=== PATIENT | male | born 1980 | race Caucasian/White ===

== ENCOUNTER 2017-03-03 10:10 | Inpatient (IN) | payer OTHER ==
[2017-03-03 10:51] VITALS: BMI 35.9
--- NOTE | 2017-03-03 13:28 | HP ---
COWS - Scale Resting Pulse: 0= [place] 80 or Below Sweatin= No chills or Flushing Restless Observation: 0= Sits Still Pupil Size: 2= Moderately Dilated Bone or Joint Aches: 4=Acute Joint/Muscle Pain Runny Nose/ Eye Tearin= Runny Nose/Eyes GI Upset > 30mins: 2= Nausea/Diarrhea (NO DIARRHEA) Tremor Observation: 1= Tremor [place], Not Seen Yawning Observation: 1= 1-2x During Session Anxiety or Irritability: 2=Irritable/Anxious Goose Flesh Skin: 0=Smooth Skin COWS Score: 14 Admission ROS S - HPI Chief Complaint: DETOX [place] FOR HEROIN DEPENDENCE Allergies/Adverse Reactions: Allergies Allergy/AdvReac Type Severity Reaction Status Date / Time No Known Allergies Allergy Verified 03/03/17 12:27 History of Present Illness: 36 Y/O MALE WITH A HX OF HEROIN AND COCAINE DEPENDENCE SEEKING DETOX [place] Exam Limitations: No Limitations - Ebola screening Have you traveled outside of the country in the last 21 days: No Have you had contact with anyone from an Ebola affected area: No Have you been sick,other than usual withdrawal symptoms: No - Review of Systems Constitutional: Chills, Night Sweats, Changes in sleep EENT: reports: Tearing, Nose Congestion Cardiac: reports: Lightheadedness GI: reports: Constipated, Diarrhea, Nausea, Poor Fluid Intake, Vomiting : reports: Dysuria (DUE TO OPIATE USE) Musculoskeletal: reports: Back Pain, Joint Pain, Muscle Pain Integumentary: reports: Bruising Neuro: reports: Headache, Unsteady Gait, Dizziness Endocrine: reports: No Symptoms Reported Hematology: reports: No Symptoms Reported Psychiatric: reports: Mood/Affect Appropiate, Orientated x3 Other Systems: Reviewed and Negative Patient History - Patient Medical History Hx Anemia: No Hx Asthma: No Hx Chronic Obstructive Pulmonary Disease (COPD): No Hx Cancer: No Hx Cardiac Disorders: No Hx Congestive Heart Failure: No Hx Hypertension: No Hx Hypercholesterolemia: No Hx Pacemaker: No HX Cerebrovascular Accident: No Hx Seizures: No Hx Diabetes: No Hx Gastrointestinal Disorders: No Hx Liver Disease: No Hx Genitourinary Disorders: No Hx Sexually Transmitted Disorders: No (DENIES) Hx Renal Disease (ESRD): No Hx Thyroid Disease: No Hx Human Immunodeficiency Virus (HIV): No (NEGATIVE HX) Hx Hepatitis C: No Hx Depression: No Hx Suicide Attempt: No (DENIES) Hx Bipolar Disorder: No Hx Schizophrenia: No - Patient Surgical History Past Surgical History: No Hx Neurologic Surgery: No Hx Cataract Extraction: No Hx Cardiac Surgery: No Hx Lung Surgery: No Hx Breast Surgery: No Hx Breast Biopsy: No Hx Abdominal Surgery: No Hx Appendectomy: No Hx Cholecystectomy: No Hx Genitourinary Surgery: No Hx Orthopedic Surgery: No Anesthesia Reaction: No - PPD History Previous Implant?: Yes Documented Results: Negative w/o proof Implanted On Prior [facility] Admission?: Yes Date: 04/21/14 PPD to be Administered?: Yes - Reproductive History Patient is a Female of Child Bearing Age (11 -55 yrs old): No (MALE) Patient : No (N/A) - Smoking Cessation Smoking history: Former smoker Have you smoked in the past 12 months: No If you are a former smoker, when did you quit?: 2014 Hx Chewing Tobacco Use: No Initiated information on smoking cessation: No - Substance & Tx. History Hx Alcohol Use: No Hx Substance Use: Yes (HEROIN) Substance Use Type: Heroin Hx Substance Use Treatment: Yes (LAST TX AT [facility] DETOX) - Substances Abused Heroin Route: Injection Frequency: Daily Amount used: 13 BAGS Age of first use: 14 Date of Last Use: 03/03/17 Cocaine Route: Inhalation Frequency: 1-3 times last 30 days Amount used: 1 GRAM Age of first use: 14 Date of Last Use: 03/01/17 Family Disease History - Family Disease History Family History: Denies Admission Physical Exam BHS - Vital Signs Vital Signs: Vital Signs - 24 hr 03/03/17 10:49 Temperature 97.3 F L Pulse Rate 70 Respiratory 18 Rate Blood Pressure 113/70 - Physical General Appearance: Yes: Moderate Distress, Obese, Irritable, Anxious HEENTM: Yes: Normocephalic, LACHELLE, Pharynx Normal Respiratory: Yes: Chest Non-Tender, Lungs Clear, Normal Breath Sounds, No Respiratory Distress Neck: Yes: No masses,lesions,Nodules, Supple, Trachea in good position Breast: Yes: Breast Exam Deferred Cardiology: Yes: Regular Rhythm, Regular Rate, S1, S2 Abdominal: Yes: Normal Bowel Sounds, Non Tender, Soft Genitourinary: Yes: Other (N/C) Back: Yes: Within Normal Limits Musculoskeletal: Yes: full range of Motion, Gait Steady Extremities: Yes: Normal Range of Motion, Non-Tender Neurological: Yes: stunner II-XII NML intact, Fully Oriented, Alert, Motor Strength 5/5 Integumentary: Yes: Dry, Warm, Track Brand (ON BOTH HANDS-NO REDNESS OR SWELLING ), Other (SMALL BRUISED SKIN AREAS ON LOWER LEGS. NO DRAINAGE.) Lymphatic: Yes: Within Normal Limits - Diagnostic (1) Nicotine dependence Current Visit: Yes Status: Acute Qualifiers: Substance use status: in withdrawal (2) Opioid dependence with withdrawal Current Visit: Yes Status: Acute (3) Cocaine dependence, uncomplicated Current Visit: Yes Status: Acute Cleared for Admission [facility] - Detox or Rehab [facility] Level of Care: Medically Managed Detox Regimen/Protocol: Methadone [facility] Breath Alcohol Content Breath Alcohol Content: 0 Urine Drug Screen - Results Drug Screen Negative: No Urine Drug Screen Results: PURA-Cocaine, OPI-Opiates
[2017-03-03] MEDS ORDERED: LOPERAMIDE HCL 2 MG CAPSULE PO PRN (13:39)
[2017-03-03] MEDS ORDERED: guaiFENesin/D-METHORPHAN HB 10 ML UNIT-DOSE CUPS PO PRN (13:39)
[2017-03-03] MEDS ORDERED: diphenhydrAMINE HCL 50 MG CAPSULE PO PRN (13:39)
[2017-03-03] MEDS ORDERED: hydrOXYzine PAMOATE 50 MG CAPSULE (FP) PO PRN (13:39)
[2017-03-03] MEDS ORDERED: MAGNESIUM CITRATE 300 ML BOTTLE PO PRN (13:39)
[2017-03-03] MEDS ORDERED: MAGNESIUM HYDROX 2400MG/30ML ORAL SUSPENSION 30 ML CUP PO PRN (13:39)
[2017-03-03] MEDS ORDERED: ACETAMINOPHEN 325 MG TABLET (FP) PO PRN (13:39)
[2017-03-03] MEDS ORDERED: MAG HYDROX/AL HYDROX/SIMETH 30 ML UNIT-DOSE CUP PO PRN (13:39)
[2017-03-03] MEDS ORDERED: MENTHOL/PHENOL 1 EACH UD MM PRN (13:39)
[2017-03-03] MEDS ORDERED: P-EPHED 60MG/TRIPROLIDI 2.5MG TABLET PO PRN (13:39)
[2017-03-03] MEDS ORDERED: IBUPROFEN 400 MG TABLET (FP) PO PRN (13:39)
[2017-03-03] MEDS ORDERED: METHADONE HCL 10 MG TABLET (FOR DETOX USE ONLY) PO ONE ×2 (15:44→23:00)
[2017-03-03] MEDS: diazePAM 5 MG TABLET PO PRN ×2 (15:54→22:35)
[2017-03-03] MEDS: BACITRACIN 0.9 GM PACKET TP SCH (16:00)
[2017-03-03 16:11] LABS: MCH 28.6 pg (25.7-33.7); MCHC 33.9 g/dl (32.0-35.9); MEAN CELL VOLUME 84.4 fl (80-96); MEAN PLT VOLUME 8.7 fl (7.5-11.1); PLATELET COUNT 207 K/MM3 (134-434); RDW 13.6 % (11.9-15.9); WHITE BLOOD COUNT 4.8 K/mm3 (4.0-10.0)
[2017-03-03 16:42] LABS: ALBUMIN 3.5 g/dl (3.4-5.0); ANION GAP 11 (8-16); CALCIUM 8.5 mg/dL (8.5-10.1); CO2 25 mmol/L (21-32); CREATININE 0.9 mg/dL (0.7-1.3); GLUCOSE,RANDOM 88 mg/dL (74-106); SGOT/AST 21 U/L (15-37); SGPT/ALT 28 U/L (12-78)
[2017-03-03 16:46] LABS: ALK PHOS 65 U/L (45-117); BILIRUBIN,TOTAL 0.3 mg/dL (0.2-1.0); TOT PROT 7.8 g/dl (6.4-8.2)
[2017-03-03 17:17] LABS: URINE APPEARANCE CLEAR; URINE BILIRUBIN NEGATIVE (NEGATIVE); URINE BLOOD NEGATIVE (NEGATIVE); URINE COLOR YELLOW; URINE GLUCOSE (UA) NEGATIVE (NEGATIVE); URINE KETONE NEGATIVE (NEGATIVE); URINE NITRITE NEGATIVE (NEGATIVE); URINE PROTEIN NEGATIVE (NEGATIVE); URINE UROBILINOGEN NEGATIVE mg/dL (0.2-1.0)
[2017-03-03] MEDS: NICOTINE 21 MG/24 HOURS TOPICAL PATCH TD SCH (17:42)
[2017-03-03] MEDS: NICOTINE POLACRILEX 4 MG GUM BUC PRN (21:16)
[2017-03-03 21:40] LABS: URINE LEUK ESTERASE Negative (NEGATIVE)
[2017-03-03] MEDS ORDERED: THIAMINE HCL 100 MG TABLET (FP) PO SCH (22:00)
[2017-03-04 00:50] LABS: HIV 1 & 2 AB NEGATIVE; HIV 1 AGp24 NEGATIVE
[2017-03-04] MEDS: diazePAM 5 MG TABLET PO PRN ×2 (02:33→07:05)
[2017-03-04] MEDS: NICOTINE POLACRILEX 4 MG GUM BUC PRN ×3 (02:37→10:11)
--- NOTE | 2017-03-04 07:51 | PN ---
S Progress Note Note: withdrawal symptom,will give clonidine 0.1 mg po now then bid,flexeril 10 mgs po tid prn,continue detox regimen
[2017-03-04] MEDS ORDERED: cloNIDine HCL 0.1 MG TABLET PO ONE (08:06)
[2017-03-04 09:29] VITALS: BP 127/90; PULSE 75; TEMP 97.7
--- NOTE | 2017-03-04 09:54 | PN ---
BHS COWS - Scale Resting Pulse: 0= [place] 80 or Below Sweatin= Beads of Sweat on Face Restless Observation: 3= Extraneous Movement Pupil Size: 0= Normal to Room Light Bone or Joint Aches: 4=Acute Joint/Muscle Pain Runny Nose/ Eye Tearin= Nasal Congestion GI Upset > 30mins: 1= Stomach Cramp Tremor Observation of Outstretched Hands: 1= Tremor [place], Not Seen Yawning Observation: 1= 1-2x During Session Anxiety or Irritability: 4=Extreme Anxiety Goose Flesh Skin: 0=Smooth Skin COWS Score: 18 BHS Progress Note (SOAP) Subjective: SEVERE WITHDRAWAL SX-ANXIETY,IRRITABILITY,RESTLESSNESS,MOANING AND SCREAMING FOR METHADONE, THROWING FOOD TRAY ON THE FLOOR AND SWEATS. SECURITY CAME TO THE FLOOR. PT WAS SPOKEN TO BY SUBSTATION OPERATOR HELPER GENERATION TO COOPERATE WITH HIS NURSE FOR HIS MEDICAL CARE. SUGGESTED TO PATIENT FOR AN ALTERNATE CARE SUCH AN MMTP. SPOKE WITH PT' S COUNSELOR, MICHELA. PT UNDERSTANDS HE NEEDS TO EXPRESS IN POSITIVE WAYS HIS WITHDRAWAL SX AND NEEDS. Objective: 03/04/17 10:25 Laboratory Last Values WBC 4.8 K/mm3 (4.0-10.0) 03/03/17 13:35 RBC 4.50 M/mm3 (4.00-5.60) 03/03/17 13:35 Hgb 12.9 GM/dL (11.7-16.9) 03/03/17 13:35 Hct 38.0 % (35.4-49) 03/03/17 13:35 MCV 84.4 fl (80-96) 03/03/17 13:35 MCH 28.6 pg (25.7-33.7) 03/03/17 13:35 MCHC 33.9 g/dl (32.0-35.9) 03/03/17 13:35 RDW 13.6 % (11.9-15.9) 03/03/17 13:35 Plt Count 207 K/MM3 (134-434) 03/03/17 13:35 MPV 8.7 fl (7.5-11.1) D 03/03/17 13:35 Sodium 138 mmol/L (136-145) 03/03/17 13:35 Potassium 4.4 mmol/L (3.5-5.1) 03/03/17 13:35 Chloride 102 mmol/L (98-107) 03/03/17 13:35 Carbon Dioxide 25 mmol/L (21-32) 03/03/17 13:35 Anion Gap 11 (8-16) 03/03/17 13:35 BUN 13 mg/dL (7-18) D 03/03/17 13:35 Creatinine 0.9 mg/dL (0.7-1.3) D 03/03/17 13:35 Creat Clearance w eGFR > 60 (>60) 03/03/17 13:35 Random Glucose 88 mg/dL (74-106) 03/03/17 13:35 Calcium 8.5 mg/dL (8.5-10.1) 03/03/17 13:35 Total Bilirubin 0.3 mg/dL (0.2-1.0) D 03/03/17 13:35 AST 21 U/L (15-37) 03/03/17 13:35 ALT 28 U/L (12-78) 03/03/17 13:35 Alkaline Phosphatase 65 U/L (45-117) 03/03/17 13:35 Total Protein 7.8 g/dl (6.4-8.2) 03/03/17 13:35 Albumin 3.5 g/dl (3.4-5.0) 03/03/17 13:35 Urine Color Yellow 03/03/17 15:30 Urine Appearance Clear 03/03/17 15:30 Urine pH 5.0 (5.0-8.0) 03/03/17 15:30 Ur Specific [place] 1.020 (1.005-1.025) 03/03/17 15:30 Urine Protein Negative (NEGATIVE) 03/03/17 15:30 Urine Glucose (UA) Negative (NEGATIVE) 03/03/17 15:30 Urine Ketones Negative (NEGATIVE) 03/03/17 15:30 Urine Blood Negative (NEGATIVE) 03/03/17 15:30 Urine Nitrite Negative (NEGATIVE) 03/03/17 15:30 Urine Bilirubin Negative (NEGATIVE) 03/03/17 15:30 Urine Urobilinogen Negative mg/dL (0.2-1.0) 03/03/17 15:30 Ur Leukocyte Esterase Negative (NEGATIVE) 10/23/17 15:30 HIV 1&2 Antibody Screen Negative 03/03/17 12:25 HIV P24 Antigen Negative 03/03/17 12:25 Assessment: 03/04/17 10:25 WITHDRAWAL SX Plan: MONITOR PT
[2017-03-04] MEDS ORDERED: cloNIDine HCL 0.1 MG TABLET PO SCH (10:00)
[2017-03-04] MEDS ORDERED: PRENATAL VITAMINS W/ FOLIC ACID TABLET (FP) PO SCH (10:00)
[2017-03-04] MEDS ORDERED: METHADONE HCL 10 MG TABLET (FOR DETOX USE ONLY) PO ONE (10:00)
[2017-03-04] MEDS: NICOTINE 21 MG/24 HOURS TOPICAL PATCH TD SCH (10:11)
[2017-03-04] MEDS: BACITRACIN 0.9 GM PACKET TP SCH (10:11)
--- NOTE | 2017-03-04 12:43 | DS ---
[facility] Detox Discharge Summary Admission Date: 03/03/17 Discharge Date: 03/04/17 - History Present History: Cocaine Dependence, Opioid Dependence Additional Comments: PT SIGNED OUT AMA. Pertinent Past History: DENIES - Physical Exam Results Vital Signs: Vital Signs Temperature 97.7 F 03/04/17 09:29 Pulse Rate 75 03/04/17 09:29 Respiratory Rate 18 03/04/17 09:29 Blood Pressure 127/90 03/04/17 09:29 O2 Sat by Pulse Oximetry (%) Pertinent Admission Physical Exam Findings: Laboratory Last Values WBC 4.8 K/mm3 (4.0-10.0) 03/03/17 13:35 RBC 4.50 M/mm3 (4.00-5.60) 03/03/17 13:35 Hgb 12.9 GM/dL (11.7-16.9) 03/03/17 13:35 Hct 38.0 % (35.4-49) 03/03/17 13:35 MCV 84.4 fl (80-96) 03/03/17 13:35 MCH 28.6 pg (25.7-33.7) 03/03/17 13:35 MCHC 33.9 g/dl (32.0-35.9) 03/03/17 13:35 RDW 13.6 % (11.9-15.9) 03/03/17 13:35 Plt Count 207 K/MM3 (134-434) 03/03/17 13:35 MPV 8.7 fl (7.5-11.1) D 03/03/17 13:35 Sodium 138 mmol/L (136-145) 03/03/17 13:35 Potassium 4.4 mmol/L (3.5-5.1) 03/03/17 13:35 Chloride 102 mmol/L (98-107) 03/03/17 13:35 Carbon Dioxide 25 mmol/L (21-32) 03/03/17 13:35 Anion Gap 11 (8-16) 03/03/17 13:35 BUN 13 mg/dL (7-18) D 03/03/17 13:35 Creatinine 0.9 mg/dL (0.7-1.3) D 03/03/17 13:35 Creat Clearance w eGFR > 60 (>60) 03/03/17 13:35 Random Glucose 88 mg/dL (74-106) 03/03/17 13:35 Calcium 8.5 mg/dL (8.5-10.1) 03/03/17 13:35 Total Bilirubin 0.3 mg/dL (0.2-1.0) D 03/03/17 13:35 AST 21 U/L (15-37) 03/03/17 13:35 ALT 28 U/L (12-78) 03/03/17 13:35 Alkaline Phosphatase 65 U/L (45-117) 03/03/17 13:35 Total Protein 7.8 g/dl (6.4-8.2) 03/03/17 13:35 Albumin 3.5 g/dl (3.4-5.0) 03/03/17 13:35 Urine Color Yellow 03/03/17 15:30 Urine Appearance Clear 03/03/17 15:30 Urine pH 5.0 (5.0-8.0) 03/03/17 15:30 Ur Specific [place] 1.020 (1.005-1.025) 03/03/17 15:30 Urine Protein Negative (NEGATIVE) 03/03/17 15:30 Urine Glucose (UA) Negative (NEGATIVE) 03/03/17 15:30 Urine Ketones Negative (NEGATIVE) 03/03/17 15:30 Urine Blood Negative (NEGATIVE) 03/03/17 15:30 Urine Nitrite Negative (NEGATIVE) 03/03/17 15:30 Urine Bilirubin Negative (NEGATIVE) 03/03/17 15:30 Urine Urobilinogen Negative mg/dL (0.2-1.0) 03/03/17 15:30 Ur Leukocyte Esterase Negative (NEGATIVE) 03/03/17 15:30 HIV 1&2 Antibody Screen Negative 03/03/17 12:25 HIV P24 Antigen Negative 03/03/17 12:25 WITHDRAWAL SX - Treatment Hospital Course: Discharged Condition Good - Medication Discharge Medications: Ambulatory Orders NK [No Known Home Medication] 04/19/14 - Diagnosis (1) Nicotine dependence Status: Acute Qualifiers: Substance use status: in withdrawal (2) Opioid dependence with withdrawal Status: Acute (3) Cocaine dependence, uncomplicated Status: Acute - AMA Did Patient Leave Against Medical Advice: Yes (AMA)
[2017-03-04] MEDS ORDERED: CYCLOBENZAPRINE HCL 10 MG TABLET (FP) PO SCH (14:00)
--- NOTE | 2017-03-04 20:32 | EKG ---
Test Reason : Blood Pressure : / mmHG Vent. Rate : 059 BPM Atrial Rate : 059 BPM P-R Int : 178 ms QRS Dur : 098 ms QT Int : 402 ms P-R-T Axes : 024 021 031 degrees QTc Int : 397 ms SINUS BRADYCARDIA OTHERWISE NORMAL ECG NO PREVIOUS ECGS AVAILABLE Confirmed by TRINIDAD THORNE MD ([id number] on 03/04/2017 8:32:17 PM Referred By: Confirmed By:TRINIDAD THORNE MD
[2017-03-05] MEDS ORDERED: METHADONE HCL 5 MG TABLET (FOR DETOX USE ONLY) PO ONE (10:00)
[2017-03-06] MEDS ORDERED: METHADONE HCL 5 MG TABLET (FOR DETOX USE ONLY) PO ONE (10:00)
[2017-03-07] MEDS ORDERED: METHADONE HCL 10 MG TABLET (FOR DETOX USE ONLY) PO ONE (10:00)
[2017-03-08] MEDS ORDERED: METHADONE HCL 5 MG TABLET (FOR DETOX USE ONLY) PO ONE (06:00)
== END 2017-03-04 11:42 | disposition left against medical advice (07) | DRG 894 ==
LOC: YASAS 10:10 → Y3N 14:03
PROVIDERS: ADMIT Internal Medicine; ATTEND Internal Medicine
PROC: HZ2ZZZZ Detoxification Services for Substance Abuse Treatment (ICD-10-PCS; principal; 2017-03-03)
DX: F11.23 Opioid dependence with withdrawal (principal); F14.20 Cocaine dependence, uncomplicated; F17.210 Nicotine dependence, cigarettes, uncomplicated; E66.9 Obesity, unspecified; Z68.35 Body mass index [BMI] 35.0-35.9, adult
CPT/HCPCS: 36415; 80053; 81003; 85027; 86593; 87389; 93005; 93010